=== PATIENT | male | born 1995 | race Caucasian/White ===

== ENCOUNTER 2017-07-13 17:15 | Emergency (ER) | payer BC ==
[~2017-07-13] VITALS: Ht 170.2 cm; Wt 59.8 kg
[~2017-07-13 17:15] MED LIST: ADDERALL30 MG PO; CITALOPRAM HBR20 MG PO; FLUOXETINE HCL20 MG PO; HYDROXYZINE PAM25 MG PO; MELATIN3 MG PO; ROBITUSSIN DM118 ML PO; TRAZODONE HCL50 MG PO; VYVANSE30 MG PO; ZOFRAN4 MG PO
[2017-07-13] MEDS ORDERED: ATARAX,VISTARIL25 MG PO (18:06)
[2017-07-13 18:11] VITALS: BP 132/75
== END 2017-07-13 18:11 | disposition home or self-care (01) ==
LOC: EME 17:15
DX: F41.9 Anxiety disorder, unspecified (principal); F90.9 Attention-deficit hyperactivity disorder, unspecified type; J45.909 Unspecified asthma, uncomplicated; Z72.0 Tobacco use
CPT/HCPCS: 99281; 99282; Q0177

== ENCOUNTER 2017-10-14 14:32 | Emergency (ER) | payer BC ==
[~2017-10-14] VITALS: Ht 172.7 cm; Wt 61.6 kg
[~2017-10-14 14:32] MED LIST changes: +ATARAX,VISTARIL25 MG PO
[2017-10-14] MEDS ORDERED: NAPROSYN500 MG PO (15:51)
[2017-10-14 16:43] VITALS: BP 122/71
== END 2017-10-14 16:44 | disposition home or self-care (01) ==
LOC: EME 14:32
DX: R09.1 Pleurisy (principal); J45.909 Unspecified asthma, uncomplicated; F90.9 Attention-deficit hyperactivity disorder, unspecified type; Z87.891 Personal history of nicotine dependence
CPT/HCPCS: 71020; 93005; 99281; 99284

== ENCOUNTER 2018-01-29 16:25 | Emergency (ER) | payer BC ==
[~2018-01-29] VITALS: Ht 170.2 cm; Wt 61.1 kg
[~2018-01-29 16:25] MED LIST changes: +NAPROSYN500 MG PO
[2018-01-29 17:44] LABS: BASE EXCESS 4.6 mEq/L (-3 to +3); BICARBONATE 28.3 mEq/L (22-26); CARBOXY HGB 1.6 % (0-5); COMMENTS - BLOOD GASES A+C+; DEVICE RA; METHEMOGLOBIN 1.2 % (0-1.5); PCO2 38 mm Hg (35-45); PO2 112 mm Hg (80-100); SITE RR; pH 7.48 (7.35-7.45)
[2018-01-29] MEDS ORDERED: PREDNISONE20 MG PO (18:09)
[2018-01-29] MEDS ORDERED: VENTOLIN HFA18 GM IH (18:09)
[2018-01-29 18:24] VITALS: BP 127/90
== END 2018-01-29 18:32 | disposition home or self-care (01) ==
LOC: EME 16:25
PROVIDERS: Nurse Practitioner Family
DX: J70.5 Respiratory conditions due to smoke inhalation (principal); F32.9 Major depressive disorder, single episode, unspecified; F41.9 Anxiety disorder, unspecified; Z87.891 Personal history of nicotine dependence
CPT/HCPCS: 36600; 71046; 82803; 93005; 99281; 99284; J7512

== ENCOUNTER 2018-05-08 12:41 | Emergency (ER) | payer OTHER ==
[~2018-05-08] VITALS: Ht 170.2 cm; Wt 57.6 kg
[~2018-05-08 12:41] MED LIST changes: +PREDNISONE20 MG PO; +VENTOLIN HFA18 GM IH
[2018-05-08 13:16] LABS: HEMATOCRIT 44.3 % (38.0-50.0); HEMOGLOBIN 15.6 G/DL (12.5-16.6); MCHC 35.2 G/DL (30.0-36.0); MCV 87.9 FL (86-99); PLATELET COUNT 272 K/uL (156-360); RBC DIS.WIDTH-SD 37.7 % (39-53); RED BLOOD COUNT 5.04 M/uL (4.00-5.50); WHITE BLOOD COUNT 5.5 K/uL (4.1-10.2)
[2018-05-08 13:25] LABS: CHLORIDE 104 mEq/L (99-109); POTASSIUM 4.3 mEq/L (3.7-5.4); SODIUM 140 mEq/L (136-147)
[2018-05-08 13:27] LABS: GLUCOSE 105 mg/dL (70-99)
[2018-05-08 13:28] LABS: TOTAL PROTEIN 7.6 g/dL (6.4-8.3)
[2018-05-08 13:29] LABS: TOTAL BILIRUBIN 1.1 mg/dL (0.0-1.0)
[2018-05-08 13:31] LABS: ALKALINE PHOSPHATASE 69 IU/L (3-129); CREATININE 1.5 mg/dL (0.6-1.3); GFR ESTIMATE (CALCULATED) > 59 mL/min/ (58.99-99999)
[2018-05-08 13:32] LABS: UREA NITROGEN (BUN) 12 mg/dL (9-23)
[2018-05-08 13:33] LABS: AST (GOT) 18 IU/L (2-34)
[2018-05-08 13:34] LABS: ALT (GPT) 19 IU/L (3-49)
[2018-05-08 13:35] LABS: LIPASE 34 U/L (1.0-51.0)
[2018-05-08] MEDS ORDERED: REGLAN10 MG PO (14:33)
[2018-05-08 14:41] VITALS: BP 121/81
== END 2018-05-08 14:44 | disposition home or self-care (01) ==
LOC: EME 12:41
PROVIDERS: Physician Assistant
DX: N28.9 Disorder of kidney and ureter, unspecified (principal); R11.0 Nausea; J45.909 Unspecified asthma, uncomplicated; F90.9 Attention-deficit hyperactivity disorder, unspecified type; F41.9 Anxiety disorder, unspecified; Z87.891 Personal history of nicotine dependence
CPT/HCPCS: 76705; 80053; 83690; 85027; 99281; 99283